=== PATIENT | male | born 1975 | race Caucasian/White ===

== ENCOUNTER → 2018-05-01 07:45 | Emergency (ER) | payer BC, OTHER ==
[~2018-05-01 07:45] MED LIST: Dexamethasone IV* 4 MG/ML 1 ML (4 MG) IM ONE; Ketorolac INJ* 60 MG/2 ML VIAL IM ONE; Orphenadrine Citrate IV* 30 MG/ML 2 ML VIAL IM ONE
--- NOTE | 2018-05-01 08:48 | ED ---
Adult Trauma - HPI Summary HPI Summary: This pt is a 42 y/o male presenting to [facility] c/o back pain and left sided rib pain s/p fall this morning. Pt reports he was walking down a handicapped ramp when he slipped on some mold on the ramp. He states he landed on his left side. Denies head strike or LOC. Pt was able to stand up on his own. Since then pt has back pain and left sided rib pain. Denies chest pain, SOB, headache, urinary or bowel dysfunction, weakness, numbness, or tingling in LE. No PMHx. - History of Current Complaint Chief Complaint: EDBackInjuryPain Stated Complaint: FALL/CHEST PAIN Time Seen by Provider: 05/01/18 08:09 Hx Obtained From: Patient Mechanism of Injury: Fall Ambulatory at the Scene: Yes Loss of Consciousness: no loss of consciousness Onset/Duration: Started Hours Ago, Traumatic, Still Present Onset of Pain: Immediate Current Severity: Severe Pain Intensity: 8 Pain Scale Used: 0-10 Numeric Location: Back, Other - left sided rib cage Aggravating Factor(s): Nothing Alleviating Factor(s): Nothing Associated Signs & Symptoms: Negative: SOB, Chest Pain, Fever, Nausea/Vomiting, Memory Loss, Numbness/Weakness, Significant Blood Loss, Other: - headache, urinary or bowel dysfunction - Allergy/Home Medications Allergies/Adverse Reactions: Allergies Allergy/AdvReac Type Severity Reaction Status Date / Time No Known Allergies Allergy Verified 05/01/18 07:53 PMH/Surg Hx/FS Hx/Imm Hx Endocrine/Hematology History: Denies: Hx Diabetes Cardiovascular History: Denies: Hx Hypertension Infectious Disease History: No Infectious Disease History: Denies: Traveled Outside the [place] in Last 30 Days - Family History Known Family History: Negative: Cardiac Disease, Hypertension, Diabetes - Social History Alcohol Use: Occasionally Substance Use Type: Reports: None Smoking Status (MU): Never Smoked Tobacco Review of Systems Negative: Fever, Chills Eyes: Negative Negative: Chest Pain Negative: Shortness Of Breath Negative: incontinence Musculoskeletal: Other - back pain, left sided rib cage pain Negative: Headache, Weakness, Paresthesia, Numbness All Other Systems Reviewed And Are Negative: Yes Physical Exam - Summary Physical Exam Summary: VITAL SIGNS: Reviewed. GENERAL: Patient is a well-developed and nourished male who is lying comfortable in the stretcher. Patient is not in any acute respiratory distress. HEAD AND FACE: No signs of trauma. No ecchymosis, hematomas or skull depressions. No sinus tenderness. EYES: PERRLA, EOMI x 2, No injected conjunctiva, no nystagmus. EARS: Hearing grossly intact. Ear canals and tympanic membranes are within normal limits. MOUTH: Oropharynx within normal limits. NECK: Supple, trachea is midline, no adenopathy, no JVD, no carotid bruit, no c- spine tenderness, neck with full ROM. CHEST: Symmetric, no tenderness at palpation LUNGS: Clear to auscultation bilaterally. No wheezing or crackles. CVS: Regular rate and rhythm, S1 and S2 present, no murmurs or gallops appreciated. ABDOMEN: Soft, non-tender. No signs of distention. No rebound, no guarding, and no masses palpated. Bowel sounds are normal. MSK: FROM in all major joints, no edema, no cyanosis or clubbing. Paraspinal muscle tenderness on the lumbar spine bilaterally. Left sided rib cage tenderness. NEURO: Alert and oriented x 3. No acute neurological deficits. Speech is normal and follows commands. SKIN: Dry and warm Triage Information Reviewed: Yes Vital Signs On Initial Exam: Initial Vitals Temp Pulse Resp BP Pulse Ox 98 F 84 17 121/83 97 05/01/18 07:50 05/01/18 07:50 05/01/18 07:50 05/01/18 07:50 05/01/18 07:50 Vital Signs Reviewed: Yes Diagnostics - Vital Signs Vital Signs Temp Pulse Resp BP Pulse Ox 05/01/18 07:50 98 F 84 17 121/83 97 - Laboratory Lab Statement: Any lab studies that have been ordered have been reviewed, and results considered in the medical decision making process. - Radiology Chest XR Xray Interpretation: Positive (See Comments) - IMPRESSION: 0.6 cm nodule overlying the left lower lung. In the abscence of previous examinations to document stability, consider further evaluation with contrast-enhanced CT of the chest in the nonacute setting. Dr. Mars has reviewed this report. Radiology Interpretation Completed By: Radiologist Ribs XR Xray Interpretation: Positive (See Comments) - IMPRESSION: 1. No displaced rib fracture or pneumothorax. 2. Again noted is a nodule overlying the left lower lung as noted on the chest radiograph performed the same date again, recommend consideration of cross-sectional imaging of the chest in the setting. Dr. Mars has reviewed this report. Radiology Interpretation Completed By: Radiologist Lumbar spine XR Xray Interpretation: No Acute Changes - IMPRESSION: Mild degenerative disc disease. No acute osseous injury to the lumbar spine. If symptoms persist, recommend repeat imaging. Dr. aMrs has reviewed this report. Radiology Interpretation Completed By: Radiologist Adult Trauma Course/Dx - Course Assessment/Plan: This pt is a 42 y/o male presenting to [facility] c/o back pain and left sided rib pain s/p fall this morning. Pt reports he was walking down a handicapped ramp when he slipped on some mold on the ramp. He states he landed on his left side. Denies head strike or LOC. Pt was able to stand up on his own. Since then pt has back pain and left sided rib pain. Denies chest pain, SOB , headache, urinary or bowel dysfunction, weakness, numbness, or tingling in LE. No PMHx. RIB X-RAY IMPRESSION: 1. NO DISPLACED RIB FRACTURE OR PNEUMOTHORAX. 2. AGAIN NOTED IS A NODULE OVERLYING THE LEFT LOWER LUNG NOTED ON THE CHEST RADIOGRAPH PERFORMED THE SAME DATE. AGAIN, RECOMMEND CONSIDERATION OF CROSS-SECTIONAL IMAGING OF THE CHEST IN THE SETTING. L SPINE XR IMPRESSION: MILD DEGENERATIVE DISC DISEASE. NO ACUTE OSSEOUS INJURY TO THE LUMBAR SPINE. IF SYMPTOMS PERSIST, RECOMMEND REPEAT IMAGING. CXR IMPRESSION: 0.6 CM NODULE OVERLYING THE LEFT LOWER LUNG. IN THE ABSENCE OF PREVIOUS EXAMINATIONS TO DOCUMENT STABILITY, CONSIDER FURTHER EVALUATION WITH CONTRAST- ENHANCED CT OF THE CHEST IN THE NONACUTE SETTING. In the ED course the patient was given Toradol, Norflex and Decadron for the pain. After these medications were given the symptoms have improved. Since there is no fracture or dislocations I will discharge the patient home with follow-up from primary care physician. He was also made aware that he has a lung nodule and it is very important to follow up with the primary care physician for further workup and management. The patient understands and agrees. He has no further questions or concerns. The patient ambulated out of the emergency department. He is hemodynamically stable, alert and oriented x3. - Diagnoses Differential Diagnosis/HQI/PQRI: Positive: Abrasion(s), Contusion(s), Fracture, Sprain, Strain Provider Diagnoses: Back pain, Lung nodule Discharge - Sign-Out/Discharge Documenting (check all that apply): Patient Departure - Discharge home - Discharge Plan Condition: Stable Disposition: HOME Prescriptions: Cyclobenzaprine TAB* [Flexeril 10 MG TAB*] 10 mg PO TID PRN #12 tab PRN Reason: spasm Ibuprofen TAB* [Motrin TAB* 600 MG] 600 mg PO Q8H PRN #30 tab PRN Reason: Pain methylPREDNISolone [Medrol Dosepak 4 MG*] 0 mg PO .SEE MACY INSTRUCTION #1 macy Patient Education Materials: Pulmonary Nodules (ED), Back Pain (ED) Referrals: Tavo Hills MD [Primary Care Provider] - Additional Instructions: FOLLOW UP WITH YOUR PRIMARY CARE PROVIDER IN 2-3 DAYS FOR THE LUNG NODULE SEEN TODAY IN X-RAY. RETURN TO THE ED FOR ANY NEW OR WORSENING SYMPTOMS. - Attestation Statements Document Initiated by Scribe: Yes Documenting Scribe: Mary Pruett Provider For Whom Scribe is Documenting (Include Credential): Naun Mars MD Scribe Attestation: Mary Oquendo, scribed for Naun Mars MD on 05/01/18 at 0959.
--- NOTE | 2018-05-01 08:57 | RAD ---
HISTORY: Chest pain s/p fall COMPARISONS: None VIEWS: 4: Frontal dual-energy and lateral views of the chest. FINDINGS: CARDIOMEDIASTINAL SILHOUETTE: The cardiomediastinal silhouette is normal. ZAK: The zak are normal. PLEURA: The costophrenic angles are sharp. No pleural abnormalities are noted. LUNG PARENCHYMA: There is a 0.6 cm nodule overlying the left lower lung on the frontal view.. ABDOMEN: The upper abdomen is clear. There is no subphrenic gas. BONES AND SOFT TISSUES: No bone or soft tissue abnormalities are noted. OTHER: None. IMPRESSION: 0.6 CM NODULE OVERLYING THE LEFT LOWER LUNG. IN THE ABSENCE OF PREVIOUS EXAMINATIONS TO DOCUMENT STABILITY, CONSIDER FURTHER EVALUATION WITH CONTRAST-ENHANCED CT OF THE CHEST IN THE NONACUTE SETTING.
--- NOTE | 2018-05-01 09:00 | RAD ---
HISTORY: back pain s/p fall COMPARISONS: None VIEWS: 4 , Frontal, lateral, and coned-down lateral sacral views of the lumbar spine FINDINGS: ALIGNMENT: The alignment is normal. VERTEBRAL BODIES: The vertebral body heights are normal. The interpedicular distances are normal. There is mild anterolateral marginal osteophyte formation. JOINTS: The facet joints are normal. INTERVERTEBRAL DISCS: There is mild diffuse loss of intervertebral disc height. SOFT TISSUE: Unremarkable. OTHER: The pelvis is unremarkable. The lung bases are clear. IMPRESSION: MILD DEGENERATIVE DISC DISEASE. NO ACUTE OSSEOUS INJURY TO THE LUMBAR SPINE. IF SYMPTOMS PERSIST, RECOMMEND REPEAT IMAGING
--- NOTE | 2018-05-01 09:01 | RAD ---
HISTORY: rib pain COMPARISONS: Chest x-ray dated May 01, 2018 VIEWS: 5 , Frontal and oblique views of the left hemithorax. FINDINGS: There is no displaced rib fracture or pneumothorax. Again noted is a nodule overlying the left lower lung as noted on the chest radiograph. IMPRESSION: 1. NO DISPLACED RIB FRACTURE OR PNEUMOTHORAX. 2. AGAIN NOTED IS A NODULE OVERLYING THE LEFT LOWER LUNG NOTED ON THE CHEST RADIOGRAPH PERFORMED THE SAME DATE. AGAIN, RECOMMEND CONSIDERATION OF CROSS-SECTIONAL IMAGING OF THE CHEST IN THE SETTING
[2018-05-01 09:57] VITALS: BP 118/69
== END | disposition home or self-care (01) ==
LOC: ED 07:45
DX: M54.9 Dorsalgia, unspecified (principal); R91.1 Solitary pulmonary nodule; R07.89 Other chest pain; W01.0XXA Fall on same level from slipping, tripping and stumbling without subsequent striking against object, initial encounter; Z79.899 Other long term (current) drug therapy
CPT/HCPCS: 71046; 72100; 96372; 99282; J1100; J1885; J2360